=== PATIENT | female | born 1960 | race Caucasian/White ===

== ENCOUNTER → 2017-02-03 | Outpatient (CLI) | payer OTHER ==
--- NOTE | ~2017-02-03 | MR17 ---
[facility] A Service of [facility] / [facility] RADIOLOGY TEXT RESULTS PATIENT: YESSI GREEN LOCATION: [facility] : 62 UNIT #: [id number] AGE: [address]: SRIDEVI NUÑEZ APRN SEX: F ORDER DR: [id number] [facility] [address] [place], [place] [address] [id number] O MR#: [id number] Acc #: [id number] NAME: YESSI GREEN : 1960 SEX: F STUDY DATE/TIME: 02/03/2017 14:19 UNIT: [facility] ROOM: STUDY DESCRIPTION: MR Brain WWo Contrast Attending Physician: Sridevi Nuñez Aprn Referring Physician: Sridevi Nuñez Aprn Ordering Physician: Sridevi Nuñez Aprn Primary Care Physician: Radha Ferrell Aprn MRI CENTER REPORT This report is preliminary unless electronic signature is present. EXAM MRI of the brain with and without HISTORY Tremors, fatigue, headaches. Evaluate for change in the status of the patient's known multiple sclerosis. Numbness in the right hand all of the time. Symptoms for 1 year. History of blurred vision. COMMENT MRI of the brain was performed prior to and following intravenous administration of 15 mL MultiHance. The comparison study is from 01/09/2015. There is a small lesion within the superior anterior pituitary gland about 5 mm AP dimension, 4 mm SI dimension, 8 mm dimension. It was probably present previously but it is not well seen on either examination since these are routine brain images. Please correlate for any clinical evidence of endocrine abnormality and consider correlation with MRI of the sella with and without contrast for better evaluation of the pituitary gland itself. Most likely consideration at this time is that this is a pituitary adenoma but it is not fully characterized. There is probably not significant mass effect on the adjacent structures at this time. Redemonstrated are small foci of white matter signal abnormality in the bilateral luna radiata unchanged. Otherwise there is mild periventricular white matter signal abnormality, unchanged and not unexpected in age group. No new areas of white matter signal abnormality are seen. There is no abnormally restricted diffusion. There is no intracranial mass effect and there is no pathologic brain parenchymal enhancement. There is nothing to suggest active demyelination. No MRI evidence for intracranial hemorrhage. No extraaxial fluid collection. Ventricles are normal in size and configuration for age group. Mild prominence perivascular space. The major intracranial flow voids are STS. [facility] A Service of [facility] / [facility] RADIOLOGY TEXT RESULTS PATIENT: YESSI GREEN LOCATION: [facility] : 62 UNIT #: [id number] AGE: [address]: SRIDEVI NUÑEZ APRN SEX: F ORDER DR: nicolas. There is partial opacification of the ethmoid air cells and there is probably retained secretions in the left maxillary sinus but no air-fluid level. IMPRESSION 1. Stable appearance to the brain. Again small white matter lesions are seen in the bilateral luna radiata less than 5 mm in dimension. Minimal periventricular white matter signal abnormality. No new lesions are seen. No pathologic enhancement, restricted diffusion or mass effect. Nothing to suggest active demyelination. 2. Mild paranasal sinus disease. 3. There is a lesion partly seen in the anterior portion of the pituitary gland superiorly. It is incompletely seen and characterized on routine brain MRI but it is most suspicious for a pituitary adenoma. Please correlate for clinical evidence of endocrine abnormality and consider correlation with MRI of the sella with without contrast for better characterization of the lesion. I suspect it was present previously though is not well seen on either examination. I doubt that it results in mass effect upon adjacent structures at this time. Dictated by... Abi Mcgregor M.D. THIS IS AN ELECTRONICALLY VERIFIED REPORT Abi Mcgregor M.D. at 02/04/2017 6:20 PM Millicent TD: 02/04/2017 11:37 JOB #: [id number] MRI CENTER REPORT Page 1 of 1 COPY
== END | disposition home or self-care (01) ==
LOC: CMRI 13:17
DX: G43.109 Migraine with aura, not intractable, without status migrainosus (principal); G25.0 Essential tremor; R53.83 Other fatigue; R20.2 Paresthesia of skin; R90.82 White matter disease, unspecified; J34.89 Other specified disorders of nose and nasal sinuses; E23.6 Other disorders of pituitary gland
CPT/HCPCS: 70553; A9577